=== PATIENT | female | born 1935 | race Caucasian/White ===

== ENCOUNTER 2024-11-10 15:26 | Inpatient (IN) | payer MEDICARE, OTHER ==
[~2024-11-10] VITALS: Ht 154.9 cm; Wt 54.4 kg
[2024-11-10 16:44] LABS: BASOPHILS # (AUTO) 0.1 K/UL (0.0-0.2); BASOPHILS % (AUTO) 0.8 % (0.0-2.0); EOSINOPHILS # (AUTO) 0.2 K/uL (0.0-0.7); EOSINOPHILS % (AUTO) 1.5 % (0.0-7.0); HEMATOCRIT 27.5 % (31.2-41.9); HEMOGLOBIN 9.1 g/dL (10.9-14.3); LYMPHOCYTES # (AUTO) 4.1 K/uL (0.8-4.8); LYMPHOCYTES % (AUTO) 32.3 % (20.5-51.5); MEAN CORPUSCULAR HGB CONC 33 g/dL (32.3-35.6); MEAN CORPUSCULAR VOLUME 87.9 fL (75.5-95.3); MONOCYTES # (AUTO) 1.3 K/uL (0.1-1.30); MONOCYTES % (AUTO) 10.4 % (0.0-11.0); NEUTROPHILS # (AUTO) 6.9 K/uL (1.8-8.9); PLATELET COUNT (AUTO) 398 K/uL (179-408); RED BLOOD CELL COUNT(AUTO) 3.12 MIL/uL (3.63-4.92); RED CELL DISTRIBUTION WIDTH 14.5 % (12.3-17.7); WHITE BLOOD COUNT (AUTO) 12.6 K/uL (3.8-11.8)
[2024-11-10 16:49] LABS: DIFFERENTIAL COMMENT 1
[2024-11-10 16:51] LABS: CALCIUM 9.5 mg/dL (8.5-10.1); CARBON DIOXIDE 28 mmol/L (21-32); CHLORIDE 99 mmol/L (98-107); CREATININE 1.2 mg/dL (0.6-1.3); GLUCOSE 111 mg/dL (74-106); POTASSIUM 3.9 mmol/L (3.5-5.1); SODIUM SERUM 134 mmol/L (136-145); UREA NITROGEN, BLOOD 37 mg/dL (7-18)
[2024-11-10 16:55] LABS: *OCCULT BLOOD STOOL POSITIVE (NEGATIVE)
[2024-11-10 16:57] LABS: ALANINE AMINOTRANSFERASE 43 U/L (14-59); ALKALINE PHOSPHATASE 155 U/L (50-136); ASPARTATE AMINOTRANSFERASE 22 U/L (15-37); BILIRUBIN,DIRECT 1.2 mg/dL (0.0-0.2); BILIRUBIN,TOTAL 1.6 mg/dL (0.2-1.0); TOTAL PROTEIN, SERUM 7.3 g/dL (6.4-8.2)
[2024-11-10] MEDS ORDERED: PANTOPRAZOLE SODIUM 40 MG VIAL ONE (17:55)
[2024-11-10] MEDS: IV NORMAL SALINE 1000 ML BAG IV ONE (18:00)
[2024-11-10] MEDS: PANTOPRAZOLE SODIUM 40 MG VIAL IV ONE (18:00)
[2024-11-10] MEDS ORDERED: ESOM40CA52 PO (18:20)
[2024-11-10] MEDS ORDERED: POTA-10 PO (18:20)
[2024-11-10] MEDS ORDERED: DIGO125T5 PO (18:20)
[2024-11-10] MEDS ORDERED: MONT10TA33 PO (18:20)
[2024-11-10] MEDS ORDERED: PRAV80TA21 PO (18:20)
[2024-11-10] MEDS ORDERED: CELE200C (18:20)
[2024-11-10] MEDS ORDERED: CYCL5TAB PO (18:20)
[2024-11-10] MEDS ORDERED: FURO40TA5 PO (18:20)
[2024-11-10] MEDS ORDERED: RIVA20TA PO (18:20)
[2024-11-10] MEDS ORDERED: OLME40TA12 PO (18:20)
[2024-11-10] MEDS ORDERED: METF-440 PO (18:20)
[2024-11-10] MEDS ORDERED: METO100T14 PO (18:20)
[2024-11-10] MEDS ORDERED: CYCLOBENZAPRINE HCL PO PRN (18:30)
[2024-11-10] MEDS ORDERED: DEXTROSE 50% 50 ML DISP.SYRIN IV PRN (18:45)
[2024-11-10] MEDS ORDERED: ACETAMINOPHEN 325 MG TABLET PO PRN (18:45)
[2024-11-10] MEDS ORDERED: MAGNESIUM HYDROXIDE 30 ML LIQUID UDC PO PRN (18:45)
[2024-11-10] MEDS ORDERED: ONDANSETRON 4 MG/2 ML VIAL IV PRN (18:45)
[2024-11-10] MEDS ORDERED: REMEDY ESSENTIAL ZINC PASTE 113 GM TP PRN (18:45)
[2024-11-10] MEDS ORDERED: CYCLOBENZAPRINE HCL 10 MG TABLET PO PRN (19:15)
[2024-11-10 19:25] LABS: *BILIRUBIN,URIN NEGATIVE (NEGATIVE); *BLOOD, URINE NEGATIVE (NEGATIVE); *CLARITY,URINE CLEAR (CLEAR); *COLOR,URINE YELLOW (YELLOW); *KETONES,URINE NEGATIVE (NEGATIVE); *PROTEIN,URINE NEGATIVE (NEGATIVE); *UROBILINOGEN,URINE 0.2 E.U./dl (NORMAL); LEUKOCYTE ESTERASE ,URINE NEGATIVE (NEGATIVE); NITRITE, URINE NEGATIVE (NEGATIVE); PH,URINE 5.5 (5.0-8.0); UGLUCOSE NEGATIVE (NEGATIVE)
[2024-11-10] MEDS: IV NS 1000 ML 1,000 ML IV PRN (23:00)
[2024-11-10 23:06] VITALS: BP 124/60; TEMP 98.6; O2SAT 95
[2024-11-10 23:15] LABS: HEMATOCRIT 23.4 % (31.2-41.9)
[2024-11-10] MEDS: BLOOD SUGAR DIAGNOSTIC 1 EACH STRIP VI SCH (23:19)
[2024-11-10] MEDS: PANTOPRAZOLE SODIUM 40 MG VIAL IV SCH (23:22)
[2024-11-10] MEDS: ATORVASTATIN 40 MG TABLET PO SCH (23:23)
[2024-11-11] VITALS (10 sets, daily range): BP systolic 92–135; BP diastolic 51–78; TEMP 97.5–98.7; O2SAT 94–98
[2024-11-11] MEDS: GUAIFENESIN/DEXTROMETHORPHAN 5 ML UDC PO PRN (01:11)
[2024-11-11 07:37] LABS: BASOPHILS # (AUTO) 0.1 K/UL (0.0-0.2); BASOPHILS % (AUTO) 0.6 % (0.0-2.0); EOSINOPHILS # (AUTO) 0.2 K/uL (0.0-0.7); EOSINOPHILS % (AUTO) 2.3 % (0.0-7.0); HEMOGLOBIN 7.9 g/dL (10.9-14.3); LYMPHOCYTES % (AUTO) 30.7 % (20.5-51.5); MEAN CORPUSCULAR HEMOGLOBIN 30.3 uug (24.7-32.8); MEAN CORPUSCULAR HGB CONC 34 g/dL (32.3-35.6); MEAN CORPUSCULAR VOLUME 88.3 fL (75.5-95.3); MONOCYTES # (AUTO) 1.1 K/uL (0.1-1.30); NEUTROPHILS # (AUTO) 5.4 K/uL (1.8-8.9); NEUTROPHILS % (AUTO) 55.4 % (38.5-71.5); PLATELET COUNT (AUTO) 341 K/uL (179-408); RED CELL DISTRIBUTION WIDTH 14.8 % (12.3-17.7); WHITE BLOOD COUNT (AUTO) 9.7 K/uL (3.8-11.8)
[2024-11-11 07:45] LABS: DIFFERENTIAL COMMENT 1
[2024-11-11 08:04] LABS: ALANINE AMINOTRANSFERASE 38 U/L (14-59); ALBUMIN 2.5 g/dL (3.4-5.0); ALKALINE PHOSPHATASE 123 U/L (50-136); ASPARTATE AMINOTRANSFERASE 27 U/L (15-37); BILIRUBIN,TOTAL 1.5 mg/dL (0.2-1.0); CALCIUM 8.5 mg/dL (8.5-10.1); CARBON DIOXIDE 26 mmol/L (21-32); CHLORIDE 105 mmol/L (98-107); CREATININE 0.9 mg/dL (0.6-1.3); GLUCOSE 86 mg/dL (74-106); MAGNESIUM 1.9 mg/dL (1.8-2.4); POTASSIUM 3.3 mmol/L (3.5-5.1); SODIUM SERUM 140 mmol/L (136-145); TOTAL PROTEIN, SERUM 5.9 g/dL (6.4-8.2); UREA NITROGEN, BLOOD 24 mg/dL (7-18)
[2024-11-11] MEDS ORDERED: METOPROLOL TARTRATE 50 MG TABLET PO SCH (09:00)
[2024-11-11] MEDS: CELECOXIB 200 MG CAPSULE PO SCH (09:48)
[2024-11-11] MEDS: VALSARTAN 80 MG TABLET PO ONE (09:49)
[2024-11-11] MEDS: DIGOXIN 125 MCG TABLET PO SCH (09:49)
[2024-11-11] MEDS: METOPROLOL TARTRATE 50 MG TABLET PO SCH (09:50)
[2024-11-11] MEDS ORDERED: POTASSIUM CHLORIDE 10 MEQ, LIDOCAINE-MPF 1% 1 ML in IV DEXTROSE 5% 100 ML IV SCH (12:00)
[2024-11-11 12:17] LABS: HEMATOCRIT 20.9 % (31.2-41.9); HEMOGLOBIN 7.1 g/dL (10.9-14.3)
[2024-11-11] MEDS: INSULIN REGULAR, HUMAN 1000 UNIT/10 ML VIAL SQ PRN (12:33)
[2024-11-11] MEDS: POTASSIUM CHLORIDE 50 ML IV SCH (12:33)
[2024-11-11] MEDS ORDERED: UBID30CA11 PO (16:15)
[2024-11-11] MEDS ORDERED: CHOL10005 PO (16:16)
[2024-11-11] MEDS: MONTELUKAST SODIUM 10 MG TABLET PO SCH (18:04)
[2024-11-12 00:18] VITALS: BP 114/53; TEMP 98.1; O2SAT 97
[2024-11-12 06:27] VITALS: BP 115/59; TEMP 98.2; O2SAT 96
[2024-11-12 07:32] LABS: BASOPHILS # (AUTO) 0.1 K/UL (0.0-0.2); BASOPHILS % (AUTO) 0.5 % (0.0-2.0); EOSINOPHILS # (AUTO) 0.1 K/uL (0.0-0.7); HEMATOCRIT 24.1 % (31.2-41.9); HEMOGLOBIN 8.2 g/dL (10.9-14.3); LYMPHOCYTES # (AUTO) 2.3 K/uL (0.8-4.8); LYMPHOCYTES % (AUTO) 24.1 % (20.5-51.5); MEAN CORPUSCULAR HEMOGLOBIN 30.4 uug (24.7-32.8); MEAN CORPUSCULAR HGB CONC 34 g/dL (32.3-35.6); MEAN CORPUSCULAR VOLUME 89.7 fL (75.5-95.3); MONOCYTES # (AUTO) 0.9 K/uL (0.1-1.30); NEUTROPHILS # (AUTO) 6.1 K/uL (1.8-8.9); NEUTROPHILS % (AUTO) 64.4 % (38.5-71.5); PLATELET COUNT (AUTO) 332 K/uL (179-408); RED BLOOD CELL COUNT(AUTO) 2.69 MIL/uL (3.63-4.92); RED CELL DISTRIBUTION WIDTH 14.5 % (12.3-17.7); WHITE BLOOD COUNT (AUTO) 9.4 K/uL (3.8-11.8)
[2024-11-12 07:42] VITALS: BP 127/52; TEMP 98.6; O2SAT 95
[2024-11-12 08:04] LABS: DIFFERENTIAL COMMENT 1
[2024-11-12 08:10] LABS: CALCIUM 8.5 mg/dL (8.5-10.1); CARBON DIOXIDE 26 mmol/L (21-32); CHLORIDE 107 mmol/L (98-107); CREATININE 0.8 mg/dL (0.6-1.3); GLUCOSE 83 mg/dL (74-106); POTASSIUM 3.8 mmol/L (3.5-5.1); SODIUM SERUM 139 mmol/L (136-145); UREA NITROGEN, BLOOD 14 mg/dL (7-18)
[2024-11-12] MEDS: VALSARTAN 40 MG TABLET PO SCH (10:51)
[2024-11-12] MEDS: PANTOPRAZOLE SODIUM 40 MG TABLET.DR PO SCH (10:53)
[2024-11-12 11:07] VITALS: BP 118/57; TEMP 97.6; O2SAT 96
[2024-11-12] MEDS: SUCRALFATE 1 G TABLET PO SCH (11:37)
[2024-11-12 11:48] LABS: EOSINOPHILS % (MANUAL) 1 % (0-8); LYMPHOCYTES % (MANUAL) 27 % (20-40); METAMYELOCYTES % 2 % (0-1); MONOCYTES % (MANUAL) 10 % (2-10); MYELOCYTES % 2 % (0-0); NEUTROPHILS % (MANUAL) 58 % (42-75); PLATELET ESTIMATE ADEQUATE
[2024-11-12] MEDS: SOD FERRIC GLUC COMPLX/SUCROSE 125 MG in IV NORMAL SALINE 100 ML IV SCH (14:09)
[2024-11-12 15:22] VITALS: BP 132/47; TEMP 98.2; O2SAT 97
[2024-11-12 20:00] VITALS: BP 127/46; TEMP 97.9; O2SAT 97
[2024-11-13 00:20] VITALS: BP 127/61; TEMP 98.3; O2SAT 97
[2024-11-13 05:06] VITALS: BP 94/58; TEMP 97.6; O2SAT 95
[2024-11-13 06:03] LABS: BASOPHILS # (AUTO) 0.1 K/UL (0.0-0.2); BASOPHILS % (AUTO) 0.8 % (0.0-2.0); EOSINOPHILS # (AUTO) 0.2 K/uL (0.0-0.7); EOSINOPHILS % (AUTO) 1.5 % (0.0-7.0); HEMATOCRIT 24.5 % (31.2-41.9); HEMOGLOBIN 8.3 g/dL (10.9-14.3); LYMPHOCYTES # (AUTO) 2.5 K/uL (0.8-4.8); LYMPHOCYTES % (AUTO) 24.9 % (20.5-51.5); MEAN CORPUSCULAR HEMOGLOBIN 30.5 uug (24.7-32.8); MEAN CORPUSCULAR HGB CONC 34 g/dL (32.3-35.6); MEAN CORPUSCULAR VOLUME 90.5 fL (75.5-95.3); MONOCYTES # (AUTO) 1.2 K/uL (0.1-1.30); NEUTROPHILS # (AUTO) 6.1 K/uL (1.8-8.9); NEUTROPHILS % (AUTO) 60.8 % (38.5-71.5); PLATELET COUNT (AUTO) 372 K/uL (179-408); RED BLOOD CELL COUNT(AUTO) 2.71 MIL/uL (3.63-4.92); RED CELL DISTRIBUTION WIDTH 14.9 % (12.3-17.7)
[2024-11-13 06:08] LABS: DIFFERENTIAL COMMENT 1
[2024-11-13 06:10] LABS: CALCIUM 8.6 mg/dL (8.5-10.1); CARBON DIOXIDE 25 mmol/L (21-32); CHLORIDE 108 mmol/L (98-107); CREATININE 0.6 mg/dL (0.6-1.3); GLUCOSE 91 mg/dL (74-106); POTASSIUM 3.8 mmol/L (3.5-5.1); SODIUM SERUM 141 mmol/L (136-145); UREA NITROGEN, BLOOD 8 mg/dL (7-18)
[2024-11-13 07:59] VITALS: BP 124/61; TEMP 98.1; O2SAT 98
[2024-11-13 11:33] VITALS: BP 114/57; TEMP 97.7; O2SAT 100
[2024-11-13] MEDS ORDERED: PANT40TA49 PO (12:43)
[2024-11-13] MEDS ORDERED: SUCR1TAB31 PO (12:43)
== END 2024-11-13 14:20 | disposition home or self-care (01) | DRG 378 ==
LOC: ER 16:15 → TELE3 22:03
PROVIDERS: ADMIT Nurse Practitioner Acute Care; ATTEND Nurse Practitioner Acute Care
PROC: 30233N1 Transfusion of Nonautologous Red Blood Cells into Peripheral Vein, Percutaneous Approach (ICD-10-PCS; 2024-11-11)
PROC: 0DB68ZX Excision of Stomach, Via Natural or Artificial Opening Endoscopic, Diagnostic (ICD-10-PCS; principal; 2024-11-11 16:30)
DX: K29.71 Gastritis, unspecified, with bleeding (principal); D62 Acute posthemorrhagic anemia; E87.1 Hypo-osmolality and hyponatremia; I48.20 Chronic atrial fibrillation, unspecified; N17.9 Acute kidney failure, unspecified; K25.4 Chronic or unspecified gastric ulcer with hemorrhage; M79.7 Fibromyalgia; Z87.19 Personal history of other diseases of the digestive system; M85.80 Other specified disorders of bone density and structure, unspecified site; M15.9 Polyosteoarthritis, unspecified; E04.1 Nontoxic single thyroid nodule; Z79.01 Long term (current) use of anticoagulants; G47.30 Sleep apnea, unspecified; E78.5 Hyperlipidemia, unspecified; Z88.5 Allergy status to narcotic agent; E11.65 Type 2 diabetes mellitus with hyperglycemia; D72.829 Elevated white blood cell count, unspecified; E11.51 Type 2 diabetes mellitus with diabetic peripheral angiopathy without gangrene; E86.1 Hypovolemia; I10 Essential (primary) hypertension; Z85.828 Personal history of other malignant neoplasm of skin
CPT/HCPCS: 36415; 83605; 83735; 84100; 84484; 85018; 85025; 85730; 86850; 86900; 86901; 86920; A4663; G0378; J2470; J2916; J3480; J7040; P9016